=== PATIENT | male | born 1990 | race Caucasian/White ===

== ENCOUNTER 2017-07-01 15:31 | Emergency (ER) | payer OTHER ==
[2017-07-01 15:47] VITALS: BMI 24.4
[2017-07-01] MEDS ORDERED: Sodium Chloride 0.9% 1,000 ML IV STA (16:42)
[2017-07-01 17:07] LABS: BASO # 0.04 K/mm3 (0.0-2.0); BASO % 1.4 % (0.0-3.0); EOS # 0.1 (0.0-0.7); GRAN # 1.58 (1.4-6.5); GRAN % 53.9 % (50.0-68.0); HEMATOCRIT 42.5 % (42.0-52.0); LYMPH # 0.9 (1.2-3.4); LYMPH % 29.4 % (22.0-35.0); MEAN CELL VOLUME 72.6 fl (80.0-105.0); MEAN CORPUSCULAR HEMOGLOBIN 24.4 pg (25.0-35.0); MEAN CORPUSCULAR HGB CONC 33.6 g/dl (31.0-37.0); MONO # 0.4 (0.1-0.6); MONO % 13.3 % (1.0-6.0); RED CELL DISTRIBUTION WIDTH 14.7 % (11.5-14.5); URINE BILIRUBIN NEGATIVE (NEGATIVE); URINE BLOOD TRACE-INTACT (NEGATIVE); URINE GLUCOSE (UA) NEGATIVE (NEGATIVE); URINE KETONE NEGATIVE (NEGATIVE); URINE LEUKOCYTE ESTERASE NEGATIVE Leu/uL (NEGATIVE); URINE PROTEIN TRACE mg/dL (<30 mg/dL); URINE UROBILINOGEN 0.2 E.U./dL (<1 E.U./dL)
[2017-07-01 17:15] LABS: URINE APPEARANCE CLEAR (CLEAR); URINE COLOR YELLOW (YELLOW); WHITE BLOOD COUNT 2.9 10^3/ul (4.5-11.0)
[2017-07-01 17:17] LABS: ALB/GLOB RATIO 1.3 (1.1-1.8); ALKALINE PHOSPHATASE 51 U/L (38-126); ALT/SGPT 41 U/L (7-56); AST/SGOT 27 U/L (17-59); BILIRUBIN,TOTAL 0.8 mg/dL (0.2-1.3); BLOOD UREA NITROGEN 11 mg/dL (7-21); CALCIUM 9.3 mg/dL (8.4-10.5); CARBON DIOXIDE 24 mmol/L (21-33); CHLORIDE 100 mmol/L (98-107); GFR AFRICAN-AMERICAN > 60; GLUCOSE,RANDOM 106 mg/dL (70-110); LIPASE 47 U/L (23-300); POTASSIUM 3.8 mmol/L (3.6-5.0); SODIUM 134 mmol/L (132-148); TOTAL PROTEIN 7.7 g/dL (5.8-8.3)
[2017-07-01 17:18] LABS: URINE AMORPHOUS SEDIMENT FEW; URINE BACTERIA MOD (NEG); URINE RBC NEGATIVE /hpf (0-2); URINE WBC 0 - 2 /hpf (0-6)
--- NOTE | 2017-07-01 17:33 | ED PDOC ---
Arrival/HPI - General Chief Complaint: GI Problem Time Seen by Provider: 07/01/17 16:04 Historian: Patient - History of Present Illness Narrative History of Present Illness (Text): 07/01/17 17:29 Patient w/ no PMH complains of 2 day history of upper abdominal abdominal pain, associated with nausea and multiple episodes of vomiting and diarrhea which has improved today, only had nausea and vomiting today, symptoms started after eating PB&J sandwich. Also admits to symptoms of cough, headache and tactile fever yesterday and the day before, but none today. Otherwise: (-) abdominal pain or diarrhea today, (-) fever, (-) melena, (-) hematochezia, (-) recent travel, (-) sick contacts. Has no history of prior abdominal surgery. Past Medical History - Provider Review Nursing Documentation Reviewed: Yes - Infectious Disease Hx of Infectious Diseases: None - Psychiatric Hx Substance Use: No - Anesthesia Hx Anesthesia: No Family/Social History - Physician Review Nursing Documentation Reviewed: Yes Family/Social History: Unknown Family HX Smoking Status: Light Smoker < 10 Cigarettes Daily Hx Alcohol Use: No Hx Substance Use: No Allergies/Home Meds Allergies/Adverse Reactions: Allergies No Known Allergies Allergy (Verified 07/01/17 15:47) Review of Systems - Review of Systems Constitutional: Normal, Fevers. absent: Fatigue, Weight Change Respiratory: Normal, Cough. absent: SOB, Sputum, Wheezing Cardiovascular: Normal. absent: Chest Pain, Palpitations, Edema Gastrointestinal: Abdominal Pain, Diarrhea, Nausea, Vomiting Genitourinary Male: Normal. absent: Dysuria, Frequency, Hematuria Musculoskeletal: Normal. absent: Arthralgias, Back Pain, Neck Pain Skin: Normal. absent: Rash, Pruritis, Skin Lesions Physical Exam - Physical Exam Narrative Physical Exam (Text): 07/01/17 17:33 GENERAL APPEARANCE: Patient is awake, alert, oriented x 3, in no acute distress. SKIN: Warm, dry; (-) cyanosis. EYES: (-) conjunctival pallor, (-) scleral icterus. ENMT: Mucous membranes dry. NECK: (-) tenderness, (-) stiffness, (-) lymphadenopathy. CHEST AND RESPIRATORY: (-) rales, (-) rhonchi, (-) wheezes; breath sounds equal bilaterally. HEART AND CARDIOVASCULAR: (-) irregularity; (-) murmur, (-) gallop. ABDOMEN AND GI: (-) distention. Bowel sounds active; (-) tenderness, (-) guarding, (-) rebound, (-) palpable masses, (-) CVA tenderness. EXTREMITIES: (-) deformity, (-) edema, (+) distal pulses. NEURO AND PSYCH: Mental status as above; (-) focal findings. Vital Signs Temp Pulse Resp BP Pulse Ox 07/01/17 18:45 98.8 F 84 16 128/72 97 07/01/17 15:49 99.5 F 89 18 110/76 96 Medical Decision Making ED Course and Treatment: 07/01/17 17:44 26 yo M w/ no PMH complains of 2 day history of upper abdominal abdominal pain, associated with nausea and multiple episodes of vomiting and diarrhea which has improved today, only had nausea and vomiting today, symptoms started after eating PB&J sandwich. Plan: -- Labs -- IV fluids -- Urinalysis -- EKG -- CXR -- Pepcid / Zofran -- Reassess and disposition 07/01/17 18:36 EKG: NSR at 70 bpm, (-) acute ST changes, as read by PA. CXR : NAD, as read by PA Labs reviewed : Patient's WBC is noted to be 2.6, rest of the labs are within normal limits. Patient notified of lab results, informed that he is slightly neutropenic, which needs further outpatient follow up for further evaluation and to have CBC repeated. On reevaluation, patient is laying in bed comfortably in no acute distress. Patient denies any nausea, abdominal pain or diarrhea while in the emergency room. On repeat exam, abdomen remained soft with no tenderness, no guarding, no rebound. Advised to follow up with primary care physician in 1-2 days without fail. Return to the emergency room at any time for any new or worsening symptoms. Patient states he fully agrees with and understands discharge instructions. States that he agrees with the plan and disposition. Verbalized and repeated discharge instructions and plan. I have given the patient opportunity to ask any additional questions. - Lab Interpretations Lab Results: 07/01/17 16:50 07/01/17 16:50 Lab Results 07/01/17 16:50: Sodium 134, Potassium 3.8, Chloride 100, Carbon Dioxide 24, Anion Gap 13, BUN 11, Creatinine 0.8, Est GFR ( Amer) > 60, Est GFR (Non- Af Amer) > 60, Random Glucose 106, Calcium 9.3, Total Bilirubin 0.8, AST 27, ALT 41, Alkaline Phosphatase 51, Total Protein 7.7, Albumin 4.3, Globulin 3.3, Albumin/Globulin Ratio 1.3, Lipase 47 07/01/17 16:50: Urine Color Yellow, Urine Appearance Clear, Urine pH 6.0, Ur Specific [place] 1.015, Urine Protein Trace H, Urine Glucose (UA) Negative, Urine Ketones Negative, Urine Blood Trace-intact H, Urine Nitrate Negative, Urine Bilirubin Negative, Urine Urobilinogen 0.2, Ur Leukocyte Esterase Negative , Urine RBC Negative, Urine WBC 0 - 2, Ur Epithelial Cells None, Amorphous Sediment Few, Urine Bacteria Mod 07/01/17 16:50: WBC 2.9 L*, RBC 5.85, Hgb 14.3, Hct 42.5, MCV 72.6 L, MCH 24.4 L , MCHC 33.6, RDW 14.7 H, Plt Count 137, MPV 10.0, Gran % 53.9, Lymph % (Auto) 29.4, [place] % (Auto) 13.3 H, Eos % (Auto) 2.0, Baso % (Auto) 1.4, Gran # 1.58, Lymph # 0.9 L, [place] # 0.4, Eos # 0.1, Baso # 0.04 - RAD Interpretation Radiology Orders: 07/01/17 16:43 CHEST TWO VIEWS (PA/LAT) [RAD] Stat - Medication Orders Current Medication Orders: Discontinued Medications Famotidine (Pepcid) 20 mg IVP STAT STA Stop: 07/01/17 16:43 Last Admin: 07/01/17 17:01 Dose: 20 mg IVP Administration Document 07/01/17 17:01 SRE (Rec: 07/01/17 17:01 SRE [id number]) Charges for Administration # of IVP Administrations 1 Sodium Chloride (Sodium Chloride 0.9%) 1,000 mls @ 100 mls/hr IV .Q10H STA Stop: 07/02/17 02:41 Last Admin: 07/01/17 16:59 Dose: 100 mls/hr eMAR Start Stop Document 07/01/17 16:59 SRE (Rec: 07/01/17 17:01 SRE [id number]) Intravenous Solution Start Date 07/01/17 Start Time 17:01 End Date 07/01/17 Ondansetron HCl (Zofran Inj) 4 mg IVP STAT STA Stop: 07/01/17 16:43 Last Admin: 07/01/17 17:01 Dose: 4 mg IVP Administration Document 07/01/17 17:01 SRE (Rec: 07/01/17 17:01 SRE [id number]) Charges for Administration # of IVP Administrations 1 - PA / BLADE GROOVER / Resident Statement MD/DO has reviewed & agrees with the documentation as recorded. Disposition/Present on Arrival - Present on Arrival Any Indicators Present on Arrival: No History of DVT/PE: No History of Uncontrolled Diabetes: No Urinary Catheter: No History of Decub. Ulcer: No History Surgical Site Infection Following: None - Disposition Have Diagnosis and Disposition been Completed?: Yes Diagnosis: Gastroenteritis, Neutropenic, Dehydration Disposition: HOME/ ROUTINE Disposition Time: 18:39 Patient Plan: Discharge Condition: STABLE Discharge Instructions (ExitCare): Neutropenia (ED), Gastroenteritis (ED) Print Language: KINYARWANDA Additional Instructions: Thank you for letting us take care of you today. You were treated for gastroenteritis, neutropenia. The emergency medical care you received today was directed at your acute symptoms. If you were prescribed any medication, please fill it and take as directed. It may take several days for your symptoms to resolve. Return to the Emergency Department if your symptoms worsen, do not improve, or if you have any other problems. Please contact your doctor in 2 days for re-evaluation and follow up / or call one of the physicians/clinics you have been referred to that are listed on the Patient Visit Information form that is included in your discharge packet. Bring any paperwork you were given at discharge with you along with any medications you are taking to your follow up visit. Our treatment cannot replace ongoing medical care by a primary care provider (PCP) outside of the emergency department. Thank you for allowing the [facility] team to be part of your care today. Prescriptions: Ondansetron ODT [Zofran ODT] 4 mg PO DAILY PRN #20 odt PRN Reason: Nausea/Vomiting Referrals: [facility] [place] [facility] [place] - Follow up with primary Forms: [employer] ([place])
[2017-07-01 18:45] VITALS: BP 128/72; PULSE 84; RESP 16; TEMP 98.8; O2SAT 97
--- NOTE | 2017-07-01 19:50 | RAD ---
HISTORY: upper abd pain COMPARISON: None available. TECHNIQUE: Chest PA and lateral FINDINGS: LUNGS: No focal consolidation. Please note that chest x-ray has limited sensitivity for the detection of pulmonary masses. PLEURA: No significant pleural effusion identified. No definite pneumothorax . CARDIOVASCULAR: The cardiomediastinal silhouette appears within normal limits of size. OSSEOUS STRUCTURES: No acute osseous abnormality identified. VISUALIZED UPPER ABDOMEN: Unremarkable. OTHER FINDINGS: None. IMPRESSION: No focal consolidation, significant pleural effusion, or definite pneumothorax identified.
--- NOTE | 2017-07-02 22:05 | CARD ---
APPROVED REPORT EKG Measurement Heart [id number] <Conclusion> Normal sinus rhythm with sinus arrhythmia Normal ECG
== END 2017-07-01 18:50 | disposition home or self-care (01) ==
LOC: ED 15:31
DX: K52.9 Noninfective gastroenteritis and colitis, unspecified (principal); D70.9 Neutropenia, unspecified; E86.0 Dehydration
CPT/HCPCS: 71020; 80053; 81001; 83690; 85025; 93005; 96374; 96375; 99283; J2405; J7040